=== PATIENT | female | born 1975 | race Two or more races ===

== ENCOUNTER 2017-10-21 09:50 | Outpatient (CLI) | payer OTHER | END 2017-10-21 09:57 | disposition home or self-care (01) | LOC: SONOGRAMA 09:50 | DX: E03.8 Other specified hypothyroidism (principal) ==

== ENCOUNTER 2019-07-06 07:18 | Outpatient (CLI) | payer OTHER | END 2019-07-06 07:21 | disposition home or self-care (01) | LOC: SONOGRAMA 07:18 | DX: E04.1 Nontoxic single thyroid nodule (principal); E04.8 Other specified nontoxic goiter ==

== ENCOUNTER 2019-07-24 07:59 | Outpatient (CLI) | payer OTHER | END 2019-07-24 08:11 | disposition home or self-care (01) | LOC: RX STUDY 07:59 | DX: R13.13 Dysphagia, pharyngeal phase (principal); R13.19 Other dysphagia ==

== ENCOUNTER 2023-05-20 08:50 | Outpatient (CLI) | payer OTHER | END 2023-05-20 08:54 | disposition home or self-care (01) | LOC: SONOGRAMA 08:50 | PROVIDERS: ATTEND Pathology Anatomic Pathology & Clinical Pathology | DX: D34 Benign neoplasm of thyroid gland (principal); E04.9 Nontoxic goiter, unspecified ==